=== PATIENT | male | born 1955 | race Caucasian/White ===

== ENCOUNTER 2023-10-01 12:16 | Emergency (ER) | payer BC, MEDICARE ==
[2023-10-01] MEDS ORDERED: Sodium Chloride 0.9% 10 ML Syringe FLUSH PRN (12:41)
[2023-10-01 13:13] LABS: HEMATOCRIT 42.5 % (38.3-50.1); HEMOGLOBIN 13.9 g/dL (12.9-17.7); MEAN CORPUSCULAR HGB CONC 32.6 g/dL (28.7-35.3); MEAN CORPUSCULAR VOLUME 82.8 fL (80.8-98.7); MEAN PLATELET VOLUME 8.4 fL (6.7-11.0); PLATELET COUNT,PLT 214 x10(3)uL (117-477); RED BLOOD CELL COUNT 5.13 x10(6)uL (3.90-5.90); RED CELL DISTRIBUTION WIDTH 22.5 % (12.4-15.0); WHITE BLOOD CELL COUNT,WBC 6.6 x10-3/uL (3.2-10.1)
[2023-10-01 13:20] LABS: A/G RATIO 0.8; ALANINE AMINOTRANSFERASE,ALT 20 U/L (12-36); ALBUMIN 3.5 g/dL (3.2-4.6); ALKALINE PHOSPHATASE 125 IU/L (56-112); ASPARTATE AMNIOTRANSFERASE,AST 18 IU/L (5-25); BILIRUBIN TOTAL 0.6 mg/dL (0.1-1.3); BLOOD UREA NITROGEN,BUN 25 mg/dL (7-18); BUN/CREATININE RATIO 13.2 (9-20); CALCIUM 9.5 mg/dL (8.6-10.2); CARBON DIOXIDE,CO2 22 mmol/L (21-32); CHLORIDE,CL 99 mmol/L (100-110); CREATININE 1.9 mg/dL (0.70-1.30); EST CRCL DRUG DOSING (CG) 34.51 mL/min; ESTIMATED GFR 38 mL/min (>60); GLUCOSE RANDOM 211 mg/dL (80-116); MAGNESIUM 1.7 mg/dL (1.8-2.5); PROTEIN TOTAL,TP 7.9 g/dL (6.0-8.0); SODIUM,NA 133 mmol/L (135-145)
[2023-10-01 13:23] LABS: BASE EXCESS VENOUS,POC -6 mmol/L (-2 - 3+); PCO2 VENOUS,POC 32 mmHg (41-51); PH VENOUS,POC 7.37 pH Units (7.32-7.43)
[2023-10-01 13:27] LABS: C-REACTIVE PROTEIN 1.38 mg/dL (<0.50)
[2023-10-01] MEDS: Sodium Chloride 0.9% 500 ML IV ONE (13:44)
[2023-10-01 13:56] LABS: INFLUENZA A NAA POSITIVE (NEGATIVE); INFLUENZA B NAA NEGATIVE (NEGATIVE); RESPIRATORY SYNCYTIAL VIR NAA NEGATIVE (NEGATIVE)
[2023-10-01 13:57] LABS: CORONAVIRUS COVID-19 NAA NEGATIVE (NEGATIVE)
[2023-10-01 14:00] LABS: BILIRUBIN,URINE NEGATIVE (NEGATIVE); GLUCOSE,URINE NORMAL (NORMAL); KETONES,URINE NEGATIVE (NEGATIVE); LEUKOCYTE ESTERASE,URINE NEGATIVE (NEGATIVE); NITRITE,URINE NEGATIVE (NEGATIVE); OCCULT BLOOD,URINE NEGATIVE (NEGATIVE); PROTEIN,URINE TRACE mg/dL (NEGATIVE); UROBILINOGEN,URINE NORMAL (NEGATIVE)
[2023-10-01 14:06] LABS: AMORPHOUS SEDIMENT,URINE MANY; APPEARANCE,URINE SLIGHTLY CLOUDY (CLEAR); BACTERIA,URINE FEW (NS); COLOR,URINE YELLOW (YELLOW); RBC,URINE 0-5 (0-5); SQUAMOUS EPITHELIAL CELLS,UR OCCASIONAL (NS,R,O); WBC,URINE 0-5 (0-5)
[2023-10-01 14:16] LABS: BAND PERCENT MAN 11 % (0-6); LYMPHOCYTES PERCENT MAN 10 % (13-37); MONOCYTES PERCENT MAN 6 % (4-12); SEG NEUTROPHILS PERCENT MAN 73 % (46-82)
[2023-10-01] MEDS: methylPREDNISolone Sodium Succinate 125 MG/2 ML SDV IVPUSH ONE (14:49)
[2023-10-01] MEDS: Piperacillin/Tazobactam 3.375 GM in Sodium Chloride 0.9% 50 ML IV ONE (14:49)
[2023-10-01] MEDS: Albuterol 0.083% 2.5 MG/3 ML Neb Soln NEB ONE (14:49)
[2023-10-01] MEDS: Oseltamivir 75 MG Cap PO ONE (14:50)
[2023-10-01] MEDS: Acetaminophen 500 MG Tab PO ONE (15:15)
[2023-10-01] MEDS: Sodium Chloride 0.9% 1,000 ML IV SCH (15:39)
[2023-10-01] MEDS: VANCOmycin 1.5 GM/300 ML 1.5 GM in Premix Bag 1 BAG IV ONE (16:47)
[2023-10-01 18:05] VITALS: BP 114/71; PULSE 99
[2023-10-02] MEDS ORDERED: VANCOmycin 1 GM/200 ML 1 GM in Premix Bag 1 BAG IV SCH (17:00)
== END 2023-10-01 18:05 ==
LOC: FB.ED 12:16
DX: A41.9 Sepsis, unspecified organism (principal); R65.21 Severe sepsis with septic shock; J96.01 Acute respiratory failure with hypoxia; J69.0 Pneumonitis due to inhalation of food and vomit; J10.1 Influenza due to other identified influenza virus with other respiratory manifestations; N17.9 Acute kidney failure, unspecified; J38.4 Edema of larynx; I10 Essential (primary) hypertension; E78.00 Pure hypercholesterolemia, unspecified; Z94.0 Kidney transplant status; Z88.6 Allergy status to analgesic agent; Z79.82 Long term (current) use of aspirin; Z79.899 Other long term (current) drug therapy
CPT/HCPCS: 0241U; 36415; 70490; 71045; 71250; 80053; 81001; 83605; 83735; 83880; 84484; 85025; 86140; 87040; 87070; 87086; 93005; 93010; 96361; 96365; 96367; 96375; 99285; 99285-25; A9270-GY; J2543; J2930; J3370; J3490; J7030; J7040

== ENCOUNTER → 2023-10-01 | Day surgery (SDC) | payer BC, MEDICARE ==
[~2023-10-01] MED LIST: Midazolam 1 MG/ML 2 ML SDV IV ONE; Pantoprazole 40 MG Tab.CR PO SCH; Propofol 200 MG/20 ML SDV IV ONE; Sodium Chloride 0.9% 10 ML Syringe FLUSH PRN; fentaNYL 100 MCG/2 ML SDV IV ONE
[2023-10-01] MEDS: Lactated Ringers 1,000 ML IV SCH ×2 (08:30→10:50)
[2023-10-01] MEDS: Simethicone Drops 40 MG/0.6 ML 30 ML Bottle ONE (08:57)
[2023-10-01] MEDS: Albuterol/Ipratropium 3.0-0.5 MG/3 ML Neb Soln NEB ONE (10:06)
[2023-10-01] MEDS: Pantoprazole 40 MG Vial IVPUSH ONE (10:47)
[2023-10-01 11:31] VITALS: BP 122/70; PULSE 97
== END | disposition home or self-care (01) ==
LOC: FB.SDS 07:38
PROVIDERS: ATTEND Surgery
DX: D12.6 Benign neoplasm of colon, unspecified (principal); K63.5 Polyp of colon; K57.30 Diverticulosis of large intestine without perforation or abscess without bleeding; E78.2 Mixed hyperlipidemia; N50.811 Right testicular pain; N40.0 Benign prostatic hyperplasia without lower urinary tract symptoms; N18.4 Chronic kidney disease, stage 4 (severe); Z86.010 Personal history of colon polyps; Z79.899 Other long term (current) drug therapy; Z88.6 Allergy status to analgesic agent
CPT/HCPCS: 00811; 88305; A9270-GY; C9113; J2250; J2704; J3010; J7120; J7620

== ENCOUNTER 2024-11-04 07:57 | Day surgery (SDC) | payer BC, MEDICARE ==
[2024-11-04] MEDS ORDERED: Sodium Chloride 0.9% 10 ML Syringe FLUSH PRN (08:00)
[2024-11-04] MEDS: Lactated Ringers 1,000 ML IV SCH (08:30)
[2024-11-04 08:46] VITALS: BP 112/72; PULSE 77
== END 2024-11-04 10:05 | disposition home or self-care (01) ==
LOC: FB.SDS 07:57
PROVIDERS: ATTEND Surgery
DX: K64.1 Second degree hemorrhoids (principal); K57.31 Diverticulosis of large intestine without perforation or abscess with bleeding; E78.2 Mixed hyperlipidemia; N18.4 Chronic kidney disease, stage 4 (severe)
CPT/HCPCS: J7120